=== PATIENT | male | born 1990 | race Two or more races ===

== ENCOUNTER 2016-07-08 14:50 | Emergency (ER) | payer OTHER ==
[~2016-07-08] VITALS: Ht 180.3 cm; Wt 82.4 kg
[2016-07-08] MEDS ORDERED: MOBIC7.5 MG PO (17:05)
[2016-07-08 17:25] VITALS: BP 121/71
== END 2016-07-08 17:30 | disposition home or self-care (01) ==
LOC: EXP 14:50 → EME 14:50 → EXP 17:30
DX: S49.91XA Unspecified injury of right shoulder and upper arm, initial encounter (principal); M25.511 Pain in right shoulder; V00.311A Fall from snowboard, initial encounter; Y93.23 Activity, snow (alpine) (downhill) skiing, snowboarding, sledding, tobogganing and snow tubing
CPT/HCPCS: 73030; 99281; 99283